=== PATIENT | male | born 1965 | race African-American/Black ===

== ENCOUNTER 2018-11-09 13:52 | Emergency (ER) | payer MEDICAID ==
[~2018-11-09] VITALS: Ht 188 cm; Wt 116.0 kg
[2018-11-09 17:39] LABS: BASOPHILS % 0.7 % (0.0-2.0); EOSINOPHILS % 1.5 % (0.0-5.0); HEMOGLOBIN. 14.9 g/dL (14.0-18.0); LYMPHOCYTES % 35.2 % (20.0-50.0); MEAN CORPUSCULAR HEMOGLOBIN 33.3 pg (28.0-32.0); MEAN PLATELET VOLUME 7.5 fl (7.4-10.4); MONOCYTES % 5.8 % (2.0-8.0); NEUTROPHILS % 56.8 % (40.0-76.0); PLATELET 177 x1000/uL (130-400); RED BLOOD CELL COUNT 4.48 mill/uL (4.7-6.1); RED CELL DISTRIBUTION WIDTH 13.5 % (11.6-14.6)
[2018-11-09 17:42] LABS: CHLORIDE 102 mEq/L (98-107)
[2018-11-09 17:43] LABS: PARTIAL THROMBOPLASTIN TIME 30.6 sec (23.4-31.0); PROTHROMBIN TIME 10.2 sec (9.6-11.0)
[2018-11-09 17:46] LABS: ETHANOL BLOOD < 10 mg/dL
[2018-11-09 17:50] LABS: CREATINE KINASE 205 IU/L (39-308)
[2018-11-09 17:53] LABS: CREATINE KINASE MB FRACTION 1.6 ng/mL (0.5-3.6)
[2018-11-09 18:48] LABS: *AMPHETAMINES SCREEN URINE NEGATIVE (NEGATIVE); *BARBITURATES SCREEN URINE NEGATIVE (NEGATIVE); *BENZODIAZEPINES SCREEN URINE NEGATIVE (NEGATIVE); *COCAINE SCREEN URINE NEGATIVE (NEGATIVE); METHADONE URINE SCREEN NEGATIVE (NEGATIVE)
[2018-11-09 18:49] LABS: CANNABINOID URINE SCREEN PRESUMTIVE POSITIVE (NEGATIVE); OPIATES URINE SCREEN NEGATIVE (NEGATIVE); PHENCYCLIDINE URINE SCREEN NEGATIVE (NEGATIVE)
[2018-11-09] MEDS ORDERED: ASPIRIN 81MG TABLET PO ONE (19:30)
[2018-11-09 19:36] VITALS: BP 142/71
== END 2018-11-09 20:15 | disposition left against medical advice (07) ==
LOC: ER 13:52 → CANBEDREQ 18:40 → ER 20:15 → CANBEDREQ 20:50
DX: R53.1 Weakness (principal); R07.89 Other chest pain; R94.31 Abnormal electrocardiogram [ECG] [EKG]; F17.210 Nicotine dependence, cigarettes, uncomplicated
CPT/HCPCS: 36415; 71045; 80305; 80320; 82550; 82553; 83880; 84443; 84484; 93005; 99284; G0480